=== PATIENT | female | born 1945 | race Native Hawaiian/Other Pacific Islander ===

== ENCOUNTER 2017-09-09 02:56 | Outpatient (CLI) | payer OTHER ==
[~2017-09-09 02:56] MED LIST: CLONIDINE0.3 MG PO; FEXOFENADINE H180 MG PO; OMEP40CA PO; PERCOGESI1 PO; TIZA4TAB5 PO; TRIA37.541 PO; XANAX XR1 MG PO
== END 2017-09-09 03:31 | disposition short-term general hospital (02) ==
LOC: AMB 02:56
DX: R06.09 Other forms of dyspnea (principal); R46.89 Other symptoms and signs involving appearance and behavior
CPT/HCPCS: A0425; A0429

== ENCOUNTER 2019-03-12 19:22 | Outpatient (CLI) | payer OTHER | END 2019-03-12 19:34 | disposition short-term general hospital (02) | LOC: AMB 19:22 | DX: R06.89 Other abnormalities of breathing (principal); R10.84 Generalized abdominal pain; K92.2 Gastrointestinal hemorrhage, unspecified; R94.31 Abnormal electrocardiogram [ECG] [EKG]; I48.91 Unspecified atrial fibrillation | CPT/HCPCS: A0425; A0427 ==

== ENCOUNTER 2019-03-12 19:55 | Emergency (ER) | payer OTHER ==
[~2019-03-12] VITALS: Ht 165.1 cm; Wt 68.0 kg
[2019-03-12 19:55] VITALS: BP 153/81; TEMP 97.9
[2019-03-12 20:44] LABS: POTASSIUM 3.5 mmol/L (3.6-5.2); SODIUM 141 mmol/L (136-145)
[2019-03-12 21:04] LABS: PLATELET COUNT 306 K/uL (152-353)
== END 2019-03-12 22:28 | disposition home or self-care (01) ==
LOC: ED 19:55
PROVIDERS: Family Medicine
DX: N39.0 Urinary tract infection, site not specified (principal); K56.609 Unspecified intestinal obstruction, unspecified as to partial versus complete obstruction; I48.91 Unspecified atrial fibrillation
CPT/HCPCS: 80053; 80307; 81000; 82150; 82550; 83690; 84484; 85027; 93005; 96360; 99284

== ENCOUNTER 2020-10-14 08:33 | Emergency (ER) | payer OTHER, MEDICARE ==
[~2020-10-14] VITALS: Ht 165.1 cm; Wt 68.0 kg
[2020-10-14 08:33] VITALS: TEMP 97.7
[2020-10-14] MEDS ORDERED: GABA300C2 PO (09:00)
[2020-10-14] MEDS ORDERED: HYDROCODONE BIT1 TAB PO (09:01)
[2020-10-14] MEDS ORDERED: METO100T37 PO (09:01)
[2020-10-14] MEDS ORDERED: DICYCLOMINE HYD20 MG PO (09:02)
[2020-10-14] MEDS ORDERED: LORA0.5T17 PO (09:02)
[2020-10-14 09:19] LABS: POTASSIUM 3.8 mmol/L (3.6-5.2); SODIUM 142 mmol/L (136-145)
[2020-10-14 09:23] LABS: PARTIAL THROMBOPLASTIN TIME 22.6 SECONDS (24.5-33.6)
[2020-10-14 09:31] LABS: PLATELET COUNT 250 K/uL (152-353)
[2020-10-14 11:55] VITALS: BP 144/93
== END 2020-10-14 12:08 | disposition home or self-care (01) ==
LOC: ED 08:36
PROVIDERS: Hospitalist
DX: I48.20 Chronic atrial fibrillation, unspecified (principal); J44.9 Chronic obstructive pulmonary disease, unspecified; J40 Bronchitis, not specified as acute or chronic; R53.1 Weakness; Z20.822 Contact with and (suspected) exposure to COVID-19
CPT/HCPCS: 36600; 80053; 82550; 82805; 83880; 84484; 85027; 85610; 85730; 87635; 93005; 96374; 96376; 99284; J2930; J3490; U0003